=== PATIENT | female | born 1980 | race Caucasian/White ===

== ENCOUNTER 2018-07-12 14:36 | Emergency (ER) | payer OTHER ==
[2018-07-12 15:03] VITALS: BMI 59.6
[2018-07-12] MEDS ORDERED: Sodium Chloride 0.9% 1,000 ML IV STA (15:04)
--- NOTE | 2018-07-12 15:07 | ED PDOC ---
Arrival/HPI - General Time Seen by Provider: 07/12/18 14:47 Historian: Patient - History of Present Illness Narrative History of Present Illness (Text): 07/12/18 15:16 A 37 year old female, with no significant past medical history, presents to the emergency department complaining of shortness of breath and cough for 2 days. Patient reports also experiencing abdominal discomfort, more so when taking deep breaths. . Patient denies any fever, chest pain, or any other complaints at this time. Past Medical History - Provider Review Nursing Documentation Reviewed: Yes Family/Social History - Physician Review Nursing Documentation Reviewed: Yes Family/Social History: No Known Family HX Allergies/Home Meds Allergies/Adverse Reactions: Allergies No Known Allergies Allergy (Unverified 07/12/18 15:04) Review of Systems - Physician Review All systems were reviewed & negative as marked: Yes - Review of Systems Constitutional: absent: Fevers ENT: Sore Throat Respiratory: SOB, Cough Cardiovascular: absent: Chest Pain Gastrointestinal: Abdominal Pain (abdominal discomfort) Physical Exam - Physical Exam Narrative Physical Exam (Text): Gen: VS reviewed, alert, well developed, well nourished, nontoxic, mild distress Eye: EOMI, PERRL Neck: no JVD, supple, no adenopathy CV: rapid heart rate, regular rhythm, no rubs,no murmur, S1, S2 Pulm: no distress, clear to auscultation, no wheeze, no rhonchi, breath sounds equal, no rales Abd: soft, nontender, no guarding, no rebound, no rigidity Ext: no edema Skin: good color, no rash, no cyanosis Psych: responds appropriately to questions, normal affect Neuro: oriented x3, CN2-12 intact grossly, motor intact, sensation intact Medical Decision Making ED Course and Treatment: 07/12/18 15:16 Impression: 37 year old female with shortness of breath and cough. Plan: -- EKG -- Angio Chest CT -- Labs -- POC Urine -- IV Fluids -- Reassess and disposition Progress Notes: - Lab Interpretations I have reviewed the lab results: Yes - RAD Interpretation Narrative RAD Interpretations (Text): 07/12/2018 19:[address] IMPRESSION: No evidence of PE. Mild non-specified bilateral hilar adenopathy possibly reactive. Dictator: Satinder Yuz MD - EKG Interpretation EKG Interpretation (Text): 07/12/18 16:11 [id number]: sinsu tach at 111 bpm,nml qrs, nml axis, no acute sttw abn Interpreted by ED Physician: Yes - Scribe Statement The provider has reviewed the documentation as recorded by the Luis Antonioibtigist Wei Provider Scribe Attestation: All medical record entries made by the Scribe were at my direction and personally dictated by me. I have reviewed the chart and agree that the record accurately reflects my personal performance of the history, physical exam, medical decision making, and the department course for this patient. I have also personally directed, reviewed, and agree with the discharge instructions and disposition. Disposition/Present on Arrival - Present on Arrival Any Indicators Present on Arrival: No - Disposition Have Diagnosis and Disposition been Completed?: Yes Diagnosis: Upper respiratory infection Disposition: HOME/ ROUTINE Disposition Time: 20:32 Patient Plan: Discharge Condition: STABLE Discharge Instructions (ExitCare): Bacterial Upper Respiratory Infection, Adult Prescriptions: Azithromycin 250 mg PO DAILY 4 Days #4 tablet Referrals: Patty Nunez MD [Primary Care Provider] - Follow up with primary
[2018-07-12 15:45] VITALS: TEMP 98.3; O2SAT 100
[2018-07-12 16:00] LABS: BASO # 0.03 K/mm3 (0.0-2.0); BASO % 0.4 % (0.0-3.0); EOS # 0.4 (0.0-0.7); EOS % 5.7 % (1.5-5.0); GRAN # 3.79 (1.4-6.5); GRAN % 56.7 % (50.0-68.0); HEMOGLOBIN 14.3 g/dL (12.0-16.0); LYMPH # 1.9 (1.2-3.4); LYMPH % 28.4 % (22.0-35.0); MEAN CELL VOLUME 83.3 fl (80.0-105.0); MEAN CORPUSCULAR HEMOGLOBIN 28.8 pg (25.0-35.0); MEAN CORPUSCULAR HGB CONC 34.5 g/dl (31.0-37.0); MEAN PLATELET VOLUME 10.5 fl (7.0-11.0); MONO # 0.6 (0.1-0.6); MONO % 8.8 % (1.0-6.0); RBC 4.97 10^6/uL (3.5-6.1); RED CELL DISTRIBUTION WIDTH 13.4 % (11.5-14.5); WHITE BLOOD COUNT 6.7 10^3/uL (4.5-11.0)
[2018-07-12 16:06] LABS: INR 0.99; PARTIAL THROMBOPLASTIN TIME 28.7 Seconds (25.1-36.5); PROTHROMBIN TIME 11.3 SECONDS (9.4-12.5)
[2018-07-12 16:48] LABS: ALB/GLOB RATIO 1.2 (1.1-1.8); ALT/SGPT 23 U/L (7-56); AST/SGOT 22 U/L (14-36); BLOOD UREA NITROGEN 12 mg/dL (7-21); CALCIUM 9.2 mg/dL (8.4-10.5); GFR NON-AFRICAN AMERICAN > 60; LIPASE 103 U/L (23-300)
[2018-07-12 17:00] LABS: TROPONIN I < 0.01 ng/mL
[2018-07-12] MEDS ORDERED: Iohexol 350 MG/100 ML VIAL ONE (17:04)
[2018-07-12 18:08] VITALS: RESP 18
[2018-07-12 19:55] VITALS: BP 112/68
[2018-07-12 20:09] VITALS: PULSE 96
--- NOTE | 2018-07-13 09:11 | CARD ---
APPROVED REPORT Date of service: 07/12/2018 EKG Measurement Heart [id number] <Conclusion> Sinus tachycardia Otherwise normal ECG
--- NOTE | 2018-07-13 10:46 | CT ---
Date of service: 07/12/2018 CTA chest PE protocol Indication: pulmonary embolism Technique: Contiguous axial images were obtained through the chest with intravenous contrast enhancement. Sagittal and coronal reconstructions were generated and reviewed. This CT exam was performed using 1 or more of the following dose reduction techniques: Automated exposure control, adjustment of the MAA and/or kV according to patient size, and/or use of iterative reconstruction technique. IV contrast: 100 mL Omnipaque 350 Radiation dose (DLP): 339.23 MGy-cm. Comparison: None available. Findings: Visualized portions of the inferior thyroid gland appear unremarkable. The mediastinal and hilar vascular structures appear within normal limits. The heart appears within normal limits of size. Sub cm hilar lymph nodes, nonspecific. No atherosclerotic calcifications/mural plaque. No large central or segmental pulmonary embolus evident. No focal consolidation. No pleural effusion. No pneumothorax. No suspicious pulmonary nodules measuring greater than 5 mm. Limited visualized portions of the upper abdomen appear grossly unremarkable. No acute osseous abnormality is detected. Impression: No large central or segmental pulmonary embolus identified. Preliminary impression was provided by [employer].
== END 2018-07-12 20:44 | disposition home or self-care (01) ==
LOC: ED 14:36
DX: J06.9 Acute upper respiratory infection, unspecified (principal)
CPT/HCPCS: 71275; 80053; 83690; 84484; 85025; 85610; 85730; 93005; 96360; 99285; J7030; Q9967